=== PATIENT | female | born 1960 | race Caucasian/White ===

== ENCOUNTER 2020-07-09 05:56 | Day surgery (SDC) | payer OTHER, SELFPAY ==
--- NOTE | 2020-07-03 10:04 | EKG12_ITS ---
Test Reason : PREOP Blood Pressure : / mmHG Vent. Rate : 061 BPM Atrial Rate : 061 BPM P-R Int : 156 ms QRS Dur : 084 ms QT Int : 428 ms P-R-T Axes : 049 008 032 degrees QTc Int : 430 ms Normal sinus rhythm Normal ECG Confirmed by PRIYANK STANLEY, DAVID ([id number]), technical editor CHASE MCHUGH ([id number]) on 07/05/2020 1:30:32 PM Referred By: Marleny Goodson Confirmed By:BEV YOST MD
[2020-07-03 11:23] LABS: Hematocrit 42.5 % (37-47); Hemoglobin 13.7 g/dL (12.0-15.0); Mean Corp Hgb Conc 32.2 g/dL (32-36); Mean Corpuscular Hgb 28.7 pg (27.0-32.0); Mean Corpuscular Volume 89.1 fL (81-99); Mean Platelet Vol. 11.9 fl (6.2-12.0); Platelet Count 268 K/mm3 (150-450); RBC Distribution Width CV 12.1 % (11.6-14.6); RBC Distribution Width SD 39.7 fl (35.1-43.9); Red Blood Count 4.77 M/mm3 (4.2-5.4)
[2020-07-03 11:31] LABS: Prothrombin Time (Protime)PT. 12.4 SECONDS (11.7-14.9)
[2020-07-03 11:32] LABS: Partial Thromboplast Time 27.7 Seconds (24.1-36.2)
[2020-07-03 11:51] LABS: AST(SGOT) 25 U/L (15-37); Alanine Aminotransfer ALT/SGPT 22 U/L (13-56); Albumin, Serum 3.8 g/dL (3.2-5.0); Alkaline Phosphatase 124 U/L (45-117); Bilirubin, Direct 0.12 mg/dL (0.00-0.30); Globulin 3.7 g/dL (2.2-4.2); Protein, Total 7.5 g/dL (6.4-8.2)
[2020-07-09 06:18] VITALS: BP 149/75; PULSE 69; RESP 16; TEMP 36.3; O2SAT 98; BMI 30.3
[2020-07-09] MEDS: Lactated Ringers 1,000 ML 100 ML IV (06:30)
--- NOTE | 2020-07-09 07:38 | PCM.OPRPT ---
Problem List (1) Microhematuria Status: Acute (2) Urge incontinence Status: Acute (3) Stress incontinence Status: Acute (4) Dyspareunia Status: Acute Report of Operation Date of Procedure: 07/09/20 Pre-Operative Diagnosis: microscopic hematuria, stress incontinence, urge incontinence, dyspareunia Post-Operative Diagnosis: same Surgery/Procedure Performed:: pelvic exam under anesthesia, cystoscopy Type of Anesthesia:: General Estimated Blood Loss (mL): 1cc Description of Procedure: The patient is a 59-year-old female with microscopic hematuria on urinalysis. She is unable to undergo cystoscopy in the office and has elected to have it done under anesthesia. The risks benefits and alternatives were discussed including the COVID-19 risks. She understands and desires to proceed. Patient was taken to the operating room and placed on the operating room table. Anesthesia monitored the head, neck, airway, IV access and vital signs throughout the case. Once anesthesia was appropriately administered the patient was placed into dorsal lithotomy position was prepped and draped in usual sterile fashion. A cystourethroscopy was then performed through the urethra. The bladder mucosa in its entirety was directly visualized. There were no masses, lesions, areas of ulceration or erythema. There were no foreign bodies. Bilateral ureteral orifices were located on the area of the trigone they did appear small in size. The patient's bladder was emptied and the cystoscope was removed. A pelvic examination revealed no evidence of pelvic organ prolapse, no trigger points were identified. There was no pelvic mass palpable. The patient was then awakened and taken to the recovery room in good condition. There were no complications during this procedure. Grafts/Implants Used: none - Complications none - Admit VTE Documentation VTE Present on Admission: Yes VTE Mechan Device Prophylaxis: SCD's VTE Pharm Prophylaxis ordered?: No Reason prophylaxis not ordered:: Treatment Not Indicated
[2020-07-09 08:00] VITALS: BP 105/60; BP 149/75; PULSE 63; RESP 16; TEMP 36.7; O2SAT 94
--- NOTE | 2020-07-09 08:07 | DCINST_ITS ---
Discharge Diet: No Restrictions Discharge Activity: Return to Normal Activity May resume sexual activity in: No Restrictions Call your doctor if you observe: Fever of 101 or Higher, Inability to urinate, Inability to have a bowel movement Allergies/Adverse Reactions: Allergies No Known Allergies Allergy (Verified 07/02/20 10:05) Medications to take at Discharge Amlodipine [Norvasc] 5 mg PO DAILY 09/05/14 Calcium (Elemental) [Caltrate-600] 600 mg PO DAILY@0800 09/05/14 Cholecalciferol (VIT D3) [Vitamin D3] 2,000 unit PO DAILY 09/05/14 buPROPion XL [Wellbutrin Xl] 150 mg PO DAILY 09/05/14 Aspirin [Aspir 81] 81 mg PO DAILY 01/02/20 Fluoxetine [Prozac] 20 mg PO DAILY 01/02/20 Hydrochlorothiazide 12.5 mg PO DAILY 01/02/20 [place]-3 Fatty Acids/Fish Oil [Fish Oil 1,000 mg Capsule] 1 ea PO DAILY 01/02/20 Turmeric Root Extract [Turmeric Curcumin] 1,000 mg PO DAILY 01/02/20 Vitamin B Complex/Folic Acid [Balance B-50 Tablet] 1 ea PO DAILY 01/02/20 Primary Care Physician: Anthony Yu III, MD [Primary Care Provider] - Test Results: Test results from this visit will be discussed in further detail at your follow- up appointment, if applicable. Please Follow Up With: Marleny Goodson MD When: call office for appt in 1-2 weeks. Proposed Discharge Date: 07/09/20
[2020-07-09 08:15] VITALS: BP 108/58; BP 149/75; PULSE 60; RESP 16; O2SAT 98
[2020-07-09 08:26] VITALS: BP 104/60; BP 149/75; PULSE 61; RESP 16; TEMP 36.7; O2SAT 98
[2020-07-09 09:25] VITALS: BP 129/78; BP 149/75; PULSE 69; RESP 16; TEMP 36.9; O2SAT 96
== END 2020-07-09 09:27 | disposition home or self-care (01) ==
LOC: SDC 05:57 → AC 05:57
PROVIDERS: Anesthesiology; PCP Family Medicine; Referring Provider Urology; Visit Provider Urology
PROC: 0TBB8ZX Excision of Bladder, Via Natural or Artificial Opening Endoscopic, Diagnostic (ICD-10-PCS; CPT 52000; principal; 2020-07-09 07:20)
DX: N39.46 Mixed incontinence (principal); N94.10 Unspecified dyspareunia; R31.29 Other microscopic hematuria; F32.9 Major depressive disorder, single episode, unspecified; Z79.899 Other long term (current) drug therapy; Z79.82 Long term (current) use of aspirin; I10 Essential (primary) hypertension; K59.04 Chronic idiopathic constipation; R15.1 Fecal smearing
CPT/HCPCS: 00910; 52000; 36415; 80076; 85027; 85610; 85730; 87635; 93005; C9803; J7120; J2405; U0003

== ENCOUNTER → 2020-07-11 17:17 | Outpatient (CLI) | payer OTHER, SELFPAY ==
[2020-07-09 06:18] VITALS: BMI 30.3
== END ==
PROVIDERS: Referring Provider Family Medicine; Visit Provider Family Medicine
DX: Z11.59 Encounter for screening for other viral diseases (principal)
CPT/HCPCS: 87635; U0003

== ENCOUNTER → 2020-07-25 12:58 | Outpatient (CLI) | payer OTHER, SELFPAY ==
[2020-07-09 06:18] VITALS: BMI 30.3
== END ==
PROVIDERS: Referring Provider Family Medicine; Visit Provider Family Medicine
DX: Z11.59 Encounter for screening for other viral diseases (principal)
CPT/HCPCS: 87635; U0003

== ENCOUNTER → 2020-08-08 12:49 | Outpatient (CLI) | payer OTHER, SELFPAY ==
[2020-07-09 06:18] VITALS: BMI 30.3
== END ==
PROVIDERS: Referring Provider Family Medicine; Visit Provider Family Medicine
DX: Z03.818 Encounter for observation for suspected exposure to other biological agents ruled out (principal)
CPT/HCPCS: 87635; U0003

== ENCOUNTER → 2020-08-22 10:26 | Outpatient (CLI) | payer OTHER, SELFPAY | PROVIDERS: Referring Provider Family Medicine; Visit Provider Family Medicine | DX: Z03.818 Encounter for observation for suspected exposure to other biological agents ruled out (principal) | CPT/HCPCS: 87635; U0003 ==

== ENCOUNTER → 2020-09-05 12:06 | Outpatient (CLI) | payer OTHER, SELFPAY | PROVIDERS: Referring Provider Family Medicine; Visit Provider Family Medicine | DX: Z03.818 Encounter for observation for suspected exposure to other biological agents ruled out (principal) | CPT/HCPCS: 87635; U0003 ==

== ENCOUNTER → 2021-02-17 20:08 | Outpatient (CLI) | payer OTHER, SELFPAY | PROVIDERS: PCP Nurse Practitioner Family; Referring Provider Nurse Practitioner Family; Visit Provider Nurse Practitioner Family | DX: G47.9 Sleep disorder, unspecified (principal); R53.83 Other fatigue | CPT/HCPCS: 95810 ==

== ENCOUNTER → 2022-08-11 | Outpatient (CLI) | payer BC, SELFPAY ==
--- NOTE | 2022-08-11 08:36 | EKG12_ITS ---
Test Reason : PREOP Blood Pressure : / mmHG Vent. Rate : 061 BPM Atrial Rate : 061 BPM P-R Int : 146 ms QRS Dur : 080 ms QT Int : 426 ms P-R-T Axes : 042 013 038 degrees QTc Int : 428 ms Normal sinus rhythm Normal ECG Confirmed by ADAL STANLEY, MANNIE ([id number]), movie editor CHASE MCHUGH ([id number]) on 08/12/2022 6:46:38 AM Referred By: Patricio Voss Confirmed By:MANNIE GALEAS MD
--- NOTE | 2022-08-11 08:38 | RAD_ITS ---
STUDY: X-RAY CHEST REASON FOR EXAM: Female, 61 years old. Preop knee surgery. TECHNIQUE: PA and lateral views of the chest. COMPARISON: None. FINDINGS: The lungs are clear and expanded. There is no demonstrated pleural abnormality. Normal size heart. Normal mediastinum and wero. Normal visualized pulmonary arteries. Normal visualized aortic arch and descending thoracic aorta. Normal visualized thoracic spine. Normal visualized ribs, clavicles, and shoulders. There is no demonstrated abnormality of the visualized soft tissue structures of the upper abdomen. RAD/Chest PA and Lateral IMPRESSION: No acute cardiopulmonary disease. Electronically Signed: Karan Westfall DO at 16:41 EDT ,
[2022-08-11 10:17] LABS: Hematocrit 42.3 % (37-47); Hemoglobin 14.1 g/dL (12.0-15.0); Mean Corp Hgb Conc 33.3 g/dL (32-36); Mean Corpuscular Hgb 29.5 pg (27.0-32.0); Mean Corpuscular Volume 88.5 fL (81-99); Mean Platelet Vol. 11.6 fl (6.2-12.0); Platelet Count 259 K/mm3 (150-450); RBC Distribution Width CV 12.5 % (11.6-14.6); RBC Distribution Width SD 40.6 fl (35.1-43.9); Red Blood Count 4.78 M/mm3 (4.2-5.4); White Blood Count 6.7 K/mm3 (4.4-11.0)
[2022-08-11 10:47] LABS: Anion Gap 6 (5-15); BUN 19 mg/dL (7-18); BUN/Creat Ratio 20.7 RATIO (10-20); Calcium,Total 9.4 mg/dL (8.5-10.1); Chloride 104 mmol/L (98-107); Creatinine, Serum 0.92 mg/dL (0.55-1.02); EST Glomerular Filtration Rate 66 mL/min (>60); Est Glom Filt Rate - Afr Amer 80 mL/min (>60); Glucose 93 mg/dL (74-106); Sodium Level 139 mmol/L (136-145)
== END | disposition home or self-care (01) ==
LOC: PSN 08:35
PROVIDERS: PCP Nurse Practitioner Family; Referring Provider Student in an Organized Health Care Education/Training Program; Visit Provider Student in an Organized Health Care Education/Training Program
DX: Z01.818 Encounter for other preprocedural examination (principal)
CPT/HCPCS: 36415; 71046; 80048; 85027; 93005

== ENCOUNTER → 2022-10-08 | Outpatient (CLI) | payer BC, SELFPAY ==
--- NOTE | 2022-10-08 10:14 | BI_ITS ---
MAMMOGRAPHY - BILATERAL SCREENING REASON FOR EXAM: Female, 61 years old. Routine annual screening examination. PERTINENT HISTORY: Aunt with breast cancer. TECHNIQUE: Digital bilateral breast onofre (3D mammographic acquisition) in the CC and MLO projections. 2-D mediolateral oblique (MLO) and craniocaudad (CC) views of both breasts were obtained. CAD: Full Field Digital Mammography with Computer Added Detection was performed. COMPARISON: Comparison is made with prior examination dated 03/09/2017. FINDINGS: Breast Composition: The breasts are almost entirely fatty. There are no dominant masses or suspicious calcifications. Stable small benign-appearing bilateral axillary lymph nodes. No other significant abnormalities are identified. There has been no significant change since the prior study. BI/SCRN MAMM (CAD)W/ONOFRE BILAT IMPRESSION: Stable bilateral screening mammogram. Yearly follow-up mammogram recommended. (A) ASSESSMENT CATEGORY: BIRADS Category 2: Benign. A letter regarding these results will be sent to the patient by the facility within 30 days. Approximately 10% of breast cancers are not detected by mammography. A normal mammogram should not delay biopsy of a clinically suspicious abnormality. [id number] Electronically Signed: Donovan Hicks MD at 14:53 EST ,
[2022-10-20 16:12] LABS: HPV APTIMA, High Risk Negative (Negative)
== END | disposition home or self-care (01) ==
PROVIDERS: PCP Nurse Practitioner Family; Visit Provider Obstetrics & Gynecology
DX: Z12.31 Encounter for screening mammogram for malignant neoplasm of breast (principal)
CPT/HCPCS: 77063; 77067; 87624; 88175; G0145

== ENCOUNTER → 2023-11-02 | Outpatient (CLI) | payer SELFPAY ==
--- NOTE | 2023-11-02 12:06 | BI_ITS ---
MAMMOGRAPHY - BILATERAL SCREENING REASON FOR EXAM: Female, 62 years old. Routine annual screening examination. PERTINENT HISTORY: Aunt with breast cancer. TECHNIQUE: Digital bilateral breast onofre (3D mammographic acquisition) in the CC and MLO projections. 2-D mediolateral oblique (MLO) and craniocaudad (CC) views of both breasts were obtained. CAD: Full Field Digital Mammography with Computer Added Detection was performed. COMPARISON: Comparison is made with prior examination of October 08, 2022. FINDINGS: Breast Composition: The breasts are almost entirely fatty. There are no dominant masses or suspicious calcifications. Stable small benign-appearing bilateral axillary lymph nodes. No other significant abnormalities are identified. There has been no significant change since the prior study. BI/SCRN MAMM (CAD)W/ONOFRE BILAT IMPRESSION: Stable bilateral screening mammogram. Yearly follow-up mammogram recommended. (A) ASSESSMENT CATEGORY: BIRADS Category 2: Benign. A letter regarding these results will be sent to the patient by the facility within 30 days. Approximately 10% of breast cancers are not detected by mammography. A normal mammogram should not delay biopsy of a clinically suspicious abnormality. [id number] Electronically Signed: Donovan Hicks MD at 13:33 EST ,
--- OUTSIDE RECORDS SUMMARY | 2023-11-02 12:17 | XMS RPT_ITS | CCD ---
Author Name Unknown Address [address] [facility] [id number] [place] [address] Organization [facility] Care Team Providers Care Wage Hand Name Role Phone Ab Kim Attending Unavailable PROVIDER, UNKNOWN Referring Unavailable UNKNOWN, PROVIDER Primary Care Unavailable Latha Rutherford Attending Unavailable PROVIDER, UNKNOWN Referring Unavailable UNKNOWN, PROVIDER Primary Care Unavailable Latha Rutherford Attending Unavailable PROVIDER, UNKNOWN Referring Unavailable UNKNOWN, PROVIDER Primary Care Unavailable Haagen ROUGH CARPENTER.CARLTON, Shaina Primary Care Provider Hazoie ROUGH CARPENTER.CARLTON, Shaina Primary Care Provider Haagen ROUGH CARPENTER.CARLTON, Shaina Primary Care Provider SHAINA TORRES Referring Unavailable SHAINA TORRES Primary Care Unavailable SHAINA TORRES Attending Unavailable SHAINA TORRES Primary Care Unavailable Allergies Allergy Classification Reported Allergen(s) Allergy Type Date of Onset Reaction(s) Facility (8 sources) Dust; Translations: [DUST] Propensity to adverse reactions 6 [facility] (7 sources) POLLENS [Other] Propensity to adverse reactions 6 [facility] (1 source) OTHER; Translations: [OTHER] Propensity to adverse reactions (disorder) 6 [facility] Repository Medications Completed/Discontinued Medications Medication Drug Class(es) Dates Sig (Normalized) Sig (Original) amLODIPine 5 mg oral tablet (8 sources) Dihydropyridine Calcium Channel Oneil Start: 08-11-2023 take 1 tablet by mouth once daily amLODIPine (NORVASC) 5 mg tablet Indications: Essential hypertension, benign Take 1 tablet by mouth once daily. 90 tablet 3 08/11/2023 Active Problems Active Problems Problem Classification Problem Date Documented Date Episodic/Chronic Adjustment disorders (12 sources) Adjustment disorder with depressed mood; Translations: [Adjustment disorder with depressed mood] Onset: 03-02-2006 03-02-2006 Chronic Disorders of lipid metabolism (2 sources) Hyperlipidemia; Translations: [Hyperlipidemia, unspecified] Onset: 09-29-2023 08-03-2023 Chronic Essential hypertension (10 sources) Benign essential hypertension; Translations: [Essential (primary) hypertension] 11-16-2005 Chronic Malaise and fatigue (2 sources) Fatigue; Translations: [Other fatigue] Onset: 09-29-2023 08-03-2023 Episodic Osteoarthritis (14 sources) Arthritis of hip; Translations: [Unilateral primary osteoarthritis, unspecified hip] Onset: 08-24-2017 08-24-2017 Chronic Other circulatory disease (8 sources) 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; Translations: [Arterial fibromuscular dysplasia] Onset: 10-31-2019 09-10-2020 Chronic Other hereditary and degenerative nervous system conditions (8 sources) Mild cognitive impairment, so stated; Translations: [Mild cognitive impairment, so stated] Onset: 02-06-2015 02-06-2015 Chronic Other hereditary and degenerative nervous system conditions (1 source) Impaired cognition; Translations: [Mild cognitive impairment, so stated] 08-03-2023 Chronic Other non-traumatic joint disorders (2 sources) Effusion, left hand; Translations: [Effusion, left hand] Onset: 11-01-2018 Episodic Other nutritional; endocrine; and metabolic disorders (7 sources) Metabolic syndrome X; Translations: [Metabolic syndrome] Onset: 06-08-2007 06-08-2007 Chronic Other nutritional; endocrine; and metabolic disorders (1 source) Weight loss; Translations: [Abnormal weight loss] 08-03-2023 Episodic Other screening for suspected conditions (not mental disorders or infectious disease) (2 sources) Patient encounter status; Translations: [Encounter for screening mammogram for malignant neoplasm of breast] Episodic Residual codes; unclassified (7 sources) Daytime somnolence; Translations: [Other hypersomnia] Onset: 09-10-2020 09-10-2020 Chronic Spondylosis; intervertebral disc disorders; other back problems (7 sources) Cervical spondylosis; Translations: [Spondylosis without myelopathy or radiculopathy, cervical region] Onset: 03-21-2013 03-21-2013 Chronic Sprains and strains (4 sources) Unspecified sprain of left wrist, initial encounter; Translations: [Strain of unspecified muscle, fascia and tendon at wrist and hand level, left hand, initial encounter] Onset: 10-07-2018 Episodic Superficial injury; contusion (2 sources) Contusion of left hand, initial encounter; Translations: [Contusion of left hand, initial encounter] Onset: 11-01-2018 Episodic Past or Other Problems Problem Classification Problem Date Documented Date Episodic/Chronic Genitourinary symptoms and ill-defined conditions (7 sources) Microscopic hematuria; Translations: [Other microscopic hematuria] Onset: 10-31-2019 10-31-2019 Episodic Other and unspecified benign neoplasm (8 sources) Angiomyolipoma of left kidney; Translations: [Benign lipomatous neoplasm of kidney] Onset: 12-07-2019 12-07-2019 Episodic Other connective tissue disease (7 sources) Impingement syndrome of right shoulder region; Translations: [Impingement syndrome of right shoulder] Onset: 10-31-2019 10-31-2019 Episodic Other connective tissue disease (7 sources) Fibromyalgia; Translations: [Fibromyalgia] Onset: 01-07-2021 01-07-2021 Episodic Residual codes; unclassified (7 sources) Menopause present; Translations: [Asymptomatic menopausal state] Onset: 10-31-2019 10-31-2019 Episodic Residual codes; unclassified (7 sources) Reduced libido; Translations: [Decreased libido] Onset: 10-31-2019 10-31-2019 Episodic Results Test Name Value Interpretation Reference Range Facil it Vital Signs Date Time Vital Sign Value Performing Clinician Martín thakur 08-03-2023 13:57-0400 Body height 170 cm Shaina Torres APRN.CNP Work Phone: [facility] 08-03-2023 13:57-0400 Body weight 83.46 kg Shaina Torres APRN.CNP Work Phone: [facility] 08-03-2023 13:57-0400 Diastolic blood pressure 82 mm[Hg] Shaina Torres APRN.CNP Work Phone: [facility] 08-03-2023 13:57-0400 Heart rate 57 /min Shaina Torres APRN.CNP Work Phone: [facility] 08-03-2023 13:57-0400 Respiratory rate 16 /min Shaina Torres APRN.SIL[employer] MINER [employer]ING Work Phone: [facility] 08-03-2023 13:57-0400 SaO2% (BldA) [Mass fraction] 92 % Shaina Torres ROUGH CARPENTER.SIL[employer]ER BLASTING Work Phone: [facility] 08-03-2023 13:57-0400 Systolic blood pressure 124 mm[Hg] Shaina Torres ROUGH CARPENTER.S[employer]ER [employer]ING Work Phone: [facility] 07-28-2022 09:31-0400 Diastolic blood pressure 80 mm[Hg] Shaina Torres ROUGH CARPENTER.[employer]ING Work Phone: [facility] 07-28-2022 09:31-0400 Heart rate 59 /min Shaina Torres ROUGH CARPENTER.[employer]ER [employer]ING Work Phone: [facility] 07-28-2022 09:31-0400 Respiratory rate 18 /min Shaina Torres ROUGH CARPENTER.[employer]ING Work Phone: [facility] 07-28-2022 09:31-0400 SaO2% (BldA) [Mass fraction] 95 % Shaina Torres ROUGH CARPENTER.SIL[employer]ER [employer]ING Work Phone: [facility] 07-28-2022 09:31-0400 Systolic blood pressure 128 mm[Hg] Shaina Torres ROUGH CARPENTER.SIL[employer]ER [employer]ING Work Phone: [facility] Encounters Encounter Date Encounter Type Care Provider Facility Start: 09-29-2023 End: 09-30-2023 ambulatory SHAINA TORRES Facility:[facility] Start: 09-06-2023 Telephone encounter Man Marie MD Work Phone: Sleep Procedures Date Procedure Procedure Detail Performing Clinician Start: 06-23-2022 Lipid 1996 panel - S sarah or Plasma Shaina Torres APRN.SIL[employer] MINER BLASTING Work Phone: Start: 01-07-2021 Adult depression scr eening assessment Shaina Torres APRN.SIL[employer] MINER [employer]ING Work Phone: Start: 10-03-2019 Mammography Shaina lino APRN.SIL[employer]ER [employer]ING Work Phone: Start: 04-11-2014 Colonoscopy Shaina lino ROUGH CARPENTER.SIL[employer]ER [employer]ING Work Phone: Plan of Treatment Date Care Activity Detail Author Start: 10-16-2028 Urine microalbumin profile [facility] Start: 10-08-2027 HPV Testing HPV Testing [facility] Start: 10-08-2027 Pap Testing Pap Testing [facility] Start: 06-23-2027 Lipid 1996 panel - Serum or Plasma Lipid Screening [facility] Start: 06-23-2027 LIPID SCREEN LIPID SCREEN [facility] Start: 01-01-2026 LIPID SCREEN LIPID SCREEN [facility] Start: 06-23-2025 DIABETES SCREEN DIABETES SCREEN [facility] Start: 06-23-2025 Diabetes Screening Diabetes Screening [facility] Start: 08-03-2024 Annual PCP Team Chronic Disease Visit Annual PCP Team Chronic Disease Visit [facility] Start: 05-20-2024 DIABETES SCREEN DIABETES SCREEN [facility] Start: 04-11-2024 Colonoscopy COLONOSCOPY [facility] Start: 04-11-2024 COLORECTAL CANCER SCREENING COLORECTAL CANCER SCREENING [facility] Start: 10-08-2023 Mammography Mammogram Screening [facility] Start: 08-03-2023 End: 10-03-2023 CBC W Auto Differential panel - Blood CBC + DIFF Lab Routine Fatigue, unspecified type Expected: 08/03/2023, Expires: 10/03/2023 [facility] Work Phone: Immunizations Immunization Date Immunization Notes Care Provider Manoj gr 10-16-2018 tetanus toxoid, redu tracie diphtheria toxoid, and acellular pertussis vaccine, adsorbed Shaina Torres ROUGH CARPENTER.CARLTON Work Phone: [facility] 08-24-2017 influenza virus vacc ine, unspecified formulation Shaina Torres ROUGH CARPENTER.SIL[employer]ER [employer]ING Work Phone: [facility] 10-12-2002 hepatitis A vaccine, unspecified formulation Shaina Torres ROUGH CARPENTER.SIL[employer]ER [employer]ING Work Phone: [facility] 10-12-2002 TD(adult) unspecifie d formulation Shaina Torres ROUGH CARPENTER.SIL[employer]ER [employer]ING Work Phone: [facility] Payers Date Payer Category Payer Unknown [id number] 2021 Unknown 2021 Unknown [employer] PPO [id number] 2021-Present [phone] [address] [place] [address] PPO [id number] 2017 Private Health Insurance [employer] PPO [id number] 2017-Present [phone] [address] [place] [address] PPO [id number] 1959 Unknown [id number] 1959 Unknown [id number] 1959 Unknown [id number] Worker's Compensation Social History Date Type Detail Facility Start: 09-20-2012 Tobacco smoking stat us PRIS Never smoked tobacco [facility] Start: 11-06-2021 End: 08-03-2023 Alcohol intake Current drinker of alcohol (finding) [facility] Start: 04-04-2014 History SDOH Alcohol Comment 1/month [facility] Start: 1960 Sex Assigned At Not on file [facility] Start: 09-20-2012 Tobacco use and exposure Smoke less tobacco non-user [facility] Work Phone: Start: 07-28-2022 History SDOH Alcohol Frequency 2 [facility] Start: 07-28-2022 History SDOH Alcohol Std Drinks 1 [facility] Start: 07-28-2022 History SDOH Social Connections Phone 4 [facility] Start: 07-28-2022 History SDOH Social Connections Get Together 98 [facility] Start: 07-28-2022 History SDOH Social Connections [facility] 3 [facility] Start: 07-27-2022 End: 08-03-2023 [facility] Start: 07-27-2022 End: 08-03-2023 Social connection and isolation panel [facility] How often do you get together with friends or relatives? Patient refused [facility] Do you belong to any clubs or organizations such as voodoo groups, unions, fraternal or athletic groups, or school groups? No [facility] Are you now , , , , never or living with a partner? [facility] How often to you hav e a drink containing alcohol? Monthly or less [facility] How many standard dr inks containing alcohol do you have on a typical day? 1 or 2 [facility] How often do you hav e 6 or more drinks on 1 occasion? Never [facility] How hard is it for y ou to pay for the very basics like food, housing, medical care, and heating Not very hard [facility] Do you feel stress - tense, restless, nervous, or anxious, or unable to sleep at night because your mind is troubled all the time - these days [OSQ] To some extent [facility] (I/We) worried whemariana er (my/our) food would run out before (I/we) got money to buy more. Never true [facility] Clinical Notes 06-08-2007 to 09-06-2023 Telephone Encounter - Gisela Foss LPN - 09/06/2023 3:01 PM ESTTelephone Encounter - Saadia Pat LPN - 09/06/2023 2:43 PM ESTPatient InstructionsPatient Instructions Note Date & Type Note Facility 09-06-2023 Miscellaneous Notes Pt has upcoming appointment with Dr. Marie 10/22/23. Gisela Foss LPN FYI: Melissa, daughter calling to make you aware of some things that are going on and she will be with pt when she comes in for her apt on 10-22-23. Some memory issues. Does not want to embarrass pt. Noticing she repeats herself often, pt will pass things off like she does not want to understand or does not care. A little personality change. Spouse has cancer and pt is stressed. Pt having problems with remembering last names does okay with first names. Pt is on antidepressants medications and not sure could they be adding to things going on. Saadia Pat LPN documented in this encounter [facility] 08-11-2023 Miscellaneous Notes Script sent. Shaina Torres APRN.SILVER MINER BLASTING Patient is calling back to say she has been out for a week and they were requested at her last appointment. She is asking for them to be called in today. Patient has been identified by name and date of : Yes Last office visit in this department: 07/28/2022 RX INSTRUCTIONS: Patient aware RX will be sent to pharmacy. No need to notify patient. Patient phones requesting refills as follows: Requested Prescriptions Pending Prescriptions Disp Refills amLODIPine (NORVASC) 5 mg tablet 90 tablet 3 Sig: Take 1 tablet by mouth once daily. buPROPion XL (WELLBUTRIN XL) 300 mg 24 hr tablet 90 tablet 2 Sig: Take 1 tablet by mouth once daily. Please review and advise. Hoa Evangelista documented in this encounter [facility] 08-03-2023 Note HNO ID: [id number] Author: Shaina Torres APRN.CARLTON Service: ? Author Type: Nurse Practitioner Type: Progress Notes Filed: 08/03/2023 6:44 PM Note Text: This is a 62 year old female who presents today with: Patient presents with: Yearly Exam HISTORY OF PRESENT ILLNESS: Gissell Ocasio is a 62 year old female. Patient presents with: Yearly Exam Refers that she is getting more forgetful and problems with short-term memory. Refers that has been going on for some time, but seems to be getting worse. Had discussed w/ Dr. Yu in the past. Declined seeing brain health. Admits that she will forget last names and sometimes trouble finding words. Has been for years. 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 Admits to past hx of ADD. HTN: Patient is compliant with meds Yes, but recently ran out of her amlodipine and took her 's lisinopril. Denies side effects: feels dry with the HCTZ. Chest pain: No. Dyspnea: No. Edema: No. Palpitations: No. Syncope: No. Headache: No. Dizziness: No. Weight loss. Down 24# in the last year. Has been losing weight. Hasn't really been trying. Decreased appetite. Will snack. No hematochezia/melena. No n/v. REVIEW OF SYSTEMS GENERAL: No malaise or fevers/chills HEENT: Negative for frequent or significant headaches, No changes in hearing or vision. NECK: Negative for lumps, goiter, pain and significant neck swelling RESPIRATORY: Negative for cough, hemoptysis, wheezing, dyspnea or shortness of breath CARDIOVASCULAR: Negative for chest pain, leg swelling, orthopnea, or palpitations GI: No nausea, vomiting, or diarrhea/constipation. No hematochezia/melena. No heartburn or reflux symptoms. : No history of dysuria, frequency or incontinence MUSCULOSKELETAL: Negative for joint pain or swelling. SKIN: Negative for lesions, rash, and itching ENDOCRINE: Negative for cold or heat intolerance, polyuria, polydipsia and goiter NEURO: No history of headaches, syncope, paralysis, seizures or tremors PAST MEDICAL HISTORY: PAST MEDICAL HISTORY Diagnosis Date Adjustment disorder with depressed mood 03/02/2006 Arthritis of hip 08/24/2017 right Decreased libido 10/31/2019 Essential hypertension, benign Fibromuscular dysplasia of carotid artery (HCC) 10/31/2019 Menopause 10/31/2019 Microscopic hematuria 10/31/2019 PMH - PAST MEDICAL HISTORY OF precancerous lesions on face Shoulder impingement syndrome, right 10/31/2019 Varicose veins of other sites PAST SURGICAL HISTORY Procedure Laterality Date COLONOSCOPY FLX DX W/COLLJ SPEC WHEN PFRMD 04/11/14 Colonoscopy CYSTOSCOPY 07/09/2020 Dr. Goodson PAST SURGICAL HISTORY OF premelanoma excised from abdomen PAST SURGICAL HISTORY OF Several Pre-cancerous lesions removed PAST SURGICAL HISTORY OF 1999 [facility] TONSILLECTOMY PRIMARY/SECONDARY AGE 11/> age of 18 ALLERGIES Dust and Pollens [Other] MEDICATIONS Current Outpatient Medications Medication Sig amLODIPine (NORVASC) 5 mg tablet Take 1 tablet by mouth once daily. aspirin, enteric coated (ASPIRIN, ENTERIC COATED) 81 mg EC tablet Take 1 tablet by mouth once daily. buPROPion XL (WELLBUTRIN XL) 300 mg 24 hr tablet Take 1 tablet by mouth once daily. FLUoxetine (PROZAC) 40 mg capsule Take 1 capsule by mouth once daily. hydroCHLOROthiazide (HYDRODIURIL, ESIDRIX) 12.5 mg capsule Take 1 capsule by mouth once daily. OMEGA-3 FATTY ACIDS/FISH OIL (OMEGA 3 FISH OIL ORAL) Take by mouth. turmeric (CURCUMIN MISC) vitamin B complex (B COMPLEX ORAL) Take by mouth as directed. No current facility-administered medications for this visit. FAMILY HISTORY Problem Relation Age of Onset Hypertension Mother had a lg benign mass in uterus, hyst. Heart Father coronary artery disease, chf Hypertension Father Hypertension Brother Hypertension Brother Thyroid Sister hypothyroidism Diabetes Sister Type 1 Social History Tobacco Use Smoking status: Never Smokeless tobacco: Never Substance Use Topics Alcohol use: Yes Comment: 1/month Drug use: No EXAM: BP 124/82 Pulse (!) 57 Resp 16 Ht 170 cm (5' 6.93 ) Wt 83.5 kg (184 lb) SpO2 92% BMI 28.88 kg/m? PHYSICAL EXAM: General Appearance: Well appearing, alert, in no acute distress, well-hydrated, well nourished. Skin: Skin color, texture, turgor normal, no suspicious rashes or lesions. Head: Normocephalic, no masses, lesions, tenderness or abnormalities. Eyes: Anicteric sclera. Extraocular movements are intact. . Oropharynx: Lips, mucosa, and tongue normal, teeth and gums normal, oropharynx normal. Neck: Supple, no adenopathy; thyroid symmetric, normal size, no bruits. Lungs: Lungs clear to auscultation. No wheezing, rhonchi, rales.. Heart: RRR without murmur, gallop, or rubs. No ectopy. Abdomen: Abdomen soft, non-tender. Bowel sounds normal. No masses, organomegaly. Extremities: No deformities, (more content not included)... [facility] 08-03-2023 Instructions Shaina Torres APRN.CARLTON - 08/03/2023 2:43 PM EDT Return for fasting labs. Schedule mammogram after the new year. Stop the HCTZ and start the lisinopril. Schedule w/ neurology. Recheck blood pressure in a month at work and send it to me. documented in this encounter [facility] 08-03-2023 History of Present illness Narrative This is a 62 year old female who presents today with: Patient presents with: Yearly Exam HISTORY OF PRESENT ILLNESS: Gissell Ocasio is a 62 year old female. Patient presents with: Yearly Exam Refers that she is getting more forgetful and problems with short-term memory. Refers that has been going on for some time, but seems to be getting worse. Had discussed w/ Dr. Yu in the past. Declined seeing [facility]. Admits that she will forget last names and sometimes trouble finding words. Has been for years. 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 Admits to past hx of ADD. HTN: Patient is compliant with meds Yes, but recently ran out of her amlodipine and took her 's lisinopril. Denies side effects: feels dry with the HCTZ. Chest pain: No. Dyspnea: No. Edema: No. Palpitations: No. Syncope: No. Headache: No. Dizziness: No. Weight loss. Down 24# in the last year. Has been losing weight. Hasn't really been trying. Decreased appetite. Will snack. No hematochezia/melena. No n/v. REVIEW OF SYSTEMS GENERAL: No malaise or fevers/chills HEENT: Negative for frequent or significant headaches, No changes in hearing or vision. NECK: Negative for lumps, goiter, pain and significant neck swelling RESPIRATORY: Negative for cough, hemoptysis, wheezing, dyspnea or shortness of breath CARDIOVASCULAR: Negative for chest pain, leg swelling, orthopnea, or palpitations GI: No nausea, vomiting, or diarrhea/constipation. No hematochezia/melena. No heartburn or reflux symptoms. : No history of dysuria, frequency or incontinence MUSCULOSKELETAL: Negative for joint pain or swelling. SKIN: Negative for lesions, rash, and itching ENDOCRINE: Negative for cold or heat intolerance, polyuria, polydipsia and goiter NEURO: No history of headaches, syncope, paralysis, seizures or tremors PAST MEDICAL HISTORY: PAST MEDICAL HISTORY Diagnosis Date Adjustment disorder with depressed mood 03/02/2006 Arthritis of hip 08/24/2017 right Decreased libido 10/31/2019 Essential hypertension, benign Fibromuscular dysplasia of carotid artery (HCC) 10/31/2019 Menopause 10/31/2019 Microscopic hematuria 10/31/2019 PMH - PAST MEDICAL HISTORY OF precancerous lesions on face Shoulder impingement syndrome, right 10/31/2019 Varicose veins of other sites PAST SURGICAL HISTORY Procedure Laterality Date COLONOSCOPY FLX DX W/COLLJ SPEC WHEN PFRMD 04/11/14 Colonoscopy CYSTOSCOPY 07/09/2020 Dr. Goodson PAST SURGICAL HISTORY OF premelanoma excised from abdomen PAST SURGICAL HISTORY OF Several Pre-cancerous lesions removed PAST SURGICAL HISTORY OF 2000 [facility] TONSILLECTOMY PRIMARY/SECONDARY AGE 11/> age of 18 ALLERGIES Dust and Pollens [Other] MEDICATIONS Current Outpatient Medications Medication Sig amLODIPine (NORVASC) 5 mg tablet Take 1 tablet by mouth once daily. aspirin, enteric coated (ASPIRIN, ENTERIC COATED) 81 mg EC tablet Take 1 tablet by mouth once daily. buPROPion XL (WELLBUTRIN XL) 300 mg 24 hr tablet Take 1 tablet by mouth once daily. FLUoxetine (PROZAC) 40 mg capsule Take 1 capsule by mouth once daily. hydroCHLOROthiazide (HYDRODIURIL, ESIDRIX) 12.5 mg capsule Take 1 capsule by mouth once daily. OMEGA-3 FATTY ACIDS/FISH OIL (OMEGA 3 FISH OIL ORAL) Take by mouth. turmeric [place] [place] vitamin B complex (B COMPLEX ORAL) Take by mouth as directed. No current facility-administered medications for this visit. FAMILY HISTORY Problem Relation Age of Onset Hypertension Mother had a lg benign mass in uterus, hyst. Heart Father coronary artery disease, chf Hypertension Father Hypertension Brother Hypertension Brother Thyroid Sister hypothyroidism Diabetes Sister Type 1 Social History Tobacco Use Smoking status: Never Smokeless tobacco: Never Substance Use Topics Alcohol use: Yes Comment: 1/month Drug use: No EXAM: BP 124/82 Pulse (!) 57 Resp 16 Ht 170 cm (5' 6.93 ) Wt 83.5 kg (184 lb) SpO2 92% BMI 28.88 kg/m PHYSICAL EXAM: General Appearance: Well appearing, alert, in no acute distress, well-hydrated, well nourished. Skin: Skin color, texture, turgor normal, no suspicious rashes or lesions. Head: Normocephalic, no masses, lesions, tenderness or abnormalities. Eyes: Anicteric sclera. Extraocular movements are intact. . Oropharynx: Lips, mucosa, and tongue normal, teeth and gums normal, oropharynx normal. Neck: Supple, no adenopathy; thyroid symmetric, normal size, no bruits. Lungs: Lungs clear to auscultation. No wheezing, rhonchi, rales.. Heart: RRR without murmur, gallop, or rubs. No ectopy. Abdomen: Abdomen soft, non-tender. Bowel sounds normal. No masses, organomegaly. Extremities: No deformities, edema, skin discoloration, clubbing or cyanosis. Good capillary refill. Neurologic: Gait normal. ASSESSMENT/PLAN: 1. Mild cognitive impairment - ICD9: 331.83, ICD10: G31.84 (primary diagnosis) Declines referral to brain [facility] at this time. She is trying to limit expense until medicare eligible. Is agreeable to neurology referral. Is agreeable to labs. - CONSULT TO NEUROLOGY - TSH BLD - T4 FREE/FREE THYROX - VITAMIN B12 BLOOD 2. Fatigue, unspecified type - ICD9: 780.79, ICD10: R53.83 - TSH BLD - T4 FREE/FREE THYROX - CBC + DIFF - COMP METABOLIC PANEL 3. Hyperlipidemia with target LDL less than 130 - ICD9: 272.4, ICD10: E78.5 - LIPID PANEL BASIC 4. Weight loss - ICD9: 783.21, ICD10: R63.4 Get labs. Get ifob. May be secondary to increased wellbutrin dose, but r/o other causes. - FECAL OCCULT BLOOD TEST 5. Visit for screening mammogram - ICD9: V76.12, ICD10: Z12.31 - Set up for mammogram, yearly mammogram recommended - [facility] SCREENING 6. Essential hypertension, benign - ICD9: 401.1, ICD10: I10 - Controlled Patient would really like to eliminate hydrochlorothiazide. We will go ahead and stop hydrochlorothiazide and start lisinopril 10 mg daily. Continue the amlodipine 5 mg daily. 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 7. Adjustment disorder with depressed mood - ICD9: 309.0, ICD10: F43.21 Stable on current medication regimen. 8. Fibromuscular dysplasia of both carotid arteries (HCC) - ICD9: 447.8, ICD10: I77.3 Declines re imaging this year -- would like to wait until medicare eligible. 9. Angiomyolipoma of left kidney - ICD9: 223.0, ICD10: D17.71 Declines reimaging this year. Would like to wait until she is medicare eligible. Discussed treatment plan and patient voices understanding. Patient's questions answered appropriately. Medications and potential side effects were discussed and patient voices understanding. Return to the office as scheduled or as needed for worsening/no improvement. Shaina Torres APRN.CNP The patient indicates understanding of these issues and agrees with the plan. This note was partially generated using [employer] voice recognition system. Note was reviewed for accuracy. There may be minor misspellings or grammar miscues with [employer] voice recognition. documented in this encounter [facility] 07-28-2022 Instructions Shaina Torres APRN.CNP - 07/28/2022 9:49 AM EDT Continue the same medications. Recheck in 3 months. documented in this encounter [facility] 07-28-2022 History of Present illness Narrative This is a 61 year old female who presents today with: Patient presents with: Recheck: Medication follow up HISTORY OF PRESENT ILLNESS: Gissell Ocasio is a 61 year old female. Patient presents with: Recheck: Medication follow up Pt presents today to follow-up on wellbutrin. She was having worsening depressive/anxiety symptoms d/t multiple situational/familial stressors. We increased the wellbutrin. She does feel that this improved her symptoms. Much less weepy. Denies any side effects to the medication adjustment. PAST MEDICAL HISTORY: PAST MEDICAL HISTORY Diagnosis Date Adjustment disorder with depressed mood 03/02/2006 Arthritis of hip 08/24/2017 right Decreased libido 10/31/2019 Essential hypertension, benign Fibromuscular dysplasia of carotid artery (HCC) 10/31/2019 Menopause 10/31/2019 Microscopic hematuria 10/31/2019 PMH - PAST MEDICAL HISTORY OF precancerous lesions on face Shoulder impingement syndrome, right 10/31/2019 Varicose veins of other sites PAST SURGICAL HISTORY Procedure Laterality Date COLONOSCOPY FLX DX W/COLLJ SPEC WHEN PFRMD 04/11/14 Colonoscopy CYSTOSCOPY 07/09/2020 Dr. Goodson PAST SURGICAL HISTORY OF premelanoma excised from abdomen PAST SURGICAL HISTORY OF Several Pre-cancerous lesions removed PAST SURGICAL HISTORY OF 1999 D&C TONSILLECTOMY PRIMARY/SECONDARY AGE 11/> age of 18 ALLERGIES Dust and Pollens [Other] MEDICATIONS Current Outpatient Medications Medication Sig amLODIPine (NORVASC) 5 mg tablet Take 1 tablet by mouth once daily. buPROPion XL (WELLBUTRIN XL) 300 mg 24 hr tablet Take 1 tablet by mouth once daily. hydroCHLOROthiazide (HYDRODIURIL, ESIDRIX) 12.5 mg capsule take 1 capsule by mouth once daily FLUoxetine (PROZAC) 40 mg capsule take 1 capsule by mouth once daily aspirin, enteric coated (ASPIRIN, ENTERIC COATED) 81 mg EC tablet Take 1 tablet by mouth once daily. vitamin B complex (B COMPLEX ORAL) Take by mouth as directed. turmeric (CURCUMIN MISC) OMEGA-3 FATTY ACIDS/FISH OIL (OMEGA 3 FISH OIL ORAL) Take by mouth. Cholecalciferol, Vitamin D3, (VITAMIN D-3) 2,000 unit cap Take 1 capsule by mouth once daily. Calcium-Cholecalciferol, D3, (CALCIUM 600 + D) 600-125 mg-unit tab Take 1 tablet by mouth once daily. buPROPion XL (WELLBUTRIN XL) 150 mg 24 hr tablet Take 1 tablet by mouth once daily. No current facility-administered medications for this visit. FAMILY HISTORY Problem Relation Age of Onset Hypertension Mother had a lg benign mass in uterus, hyst. Heart Father coronary artery disease, chf Hypertension Father Hypertension Brother Hypertension Brother Thyroid Sister hypothyroidism Diabetes Sister Type 1 Social History Tobacco Use Smoking status: Never Smokeless tobacco: Never Substance Use Topics Alcohol use: Yes Comment: 1/month Drug use: No EXAM: BP 128/80 Pulse (!) 59 Resp 18 SpO2 95% PHYSICAL EXAM: General Appearance: Well appearing, alert, in no acute distress, well-hydrated, well nourished.. Skin: Skin color, texture, turgor normal, no suspicious rashes or lesions. Head: Normocephalic, no masses, lesions, tenderness or abnormalities. Eyes: Anicteric sclera. Extraocular movements are intact. . Neurologic: Gait normal. ASSESSMENT/PLAN: 1. Adjustment disorder with depressed mood - ICD9: 309.0, ICD10: F43.21 (primary diagnosis) Improved w/ increase wellbutrin dose. Continue the same dose. Recheck in 3 months. - FLUOXETINE 40 MG CAPSULE - BUPROPION XL 300 MG 24 HR TAB 2. Essential hypertension, benign - ICD9: 401.1, ICD10: I10 Refill: - HYDROCHLOROTHIAZIDE 12.5 MG CAPSULE Discussed treatment plan and patient voices understanding. Patient's questions answered appropriately. Medications and potential side effects were discussed and patient voices understanding. Return to the office as scheduled or as needed for worsening/no improvement. Shaina Torres APRN.[employer] documented in this encounter [facility] 05-27-2022 Miscellaneous Notes Patient phones requesting refills as follows: Pending Prescriptions Disp Refills FLUOXETINE 40 MG CAPSULE 90 capsule 0 Sig: take 1 capsule by mouth once daily BRITTANY: Yes DEVANTE-05/07/21 Labs-05/20/21 NOV-none med filled 05/12/22 Please review and advise. Rosalind Crowe LPN documented in this encounter [facility] 05-12-2022 Miscellaneous Notes The following approved medication requests have been transmitted electronically. Signed Prescriptions Disp Refills FLUoxetine (PROZAC) 40 mg capsule 90 capsule 0 Sig: take 1 capsule by mouth once daily BRITTANY: No Authorizing Provider: ADRIENNE HARTMANN Ordering User: SHAINA TORRES Patient active [facility]. Patient notified via [facility] message. Bailey Boothe MA Script sent. Due for an appointment - hasn't been seen in over a year. Please let patient know. Shaina Torres APRN.[employer] Patient has been identified by name and date of : Yes Patient phones for refill(s): Pending Prescriptions Disp Refills FLUOXETINE 40 MG CAPSULE 90 capsule 1 Sig: take 1 capsule by mouth once daily BRITTANY: Yes Date of last office visit in primary care: 05/07/21 No future OV scheduled Please advise. Thank you. 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/08/2007 documented as of this encounter (statuses as of 05/27/2022) [address]15-2007 History of Past illness Narrative* Problem Noted Date Resolved Date Plantar fascial 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/08/2007 documented as of this encounter (statuses as of 07/28/2022) [address]15-2007 History of Past illness Narrative* Problem Noted Date Diagnosed Date Resolved Date Plantar fascial 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/08/2007 08/24/2017 documented as of this encounter (statuses as of 08/04/2023) [facility] History of Past illness Narrative* Problem Noted Date Diagnosed Date Resolved Date Plantar fascial 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/08/2007 08/24/2017 documented as of this encounter (statuses as of 08/11/2023) [facility] History of Past illness Narrative* Problem Noted Date Diagnosed Date Resolved Date Plantar fascial 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/08/2007 08/24/2017 documented as of this encounter (statuses as of 09/07/2023) [facility] Diagnosis Encounter for screening mammogram for breast cancer [facility] Diagnosis Adjustment disorder with depressed mood [facility] Diagnosis Adjustment disorder with depressed mood [facility] Diagnosis Adjustment disorder with depressed mood- Primary Essential hypertension, benign documented [facility] Diagnosis Mild cognitive impairment- Primary Mild cognitive impairment, so stated Fatigue, unspecified type Hyperlipidemia with target LDL less than 130 Other and unspecified hyperlipidemia Weight loss Loss of weight Visit for screening mammogram Other screening mammogram Essential hypertension, benign Adjustment disorder with depressed mood Fibromuscular dysplasia of both carotid arteries (HCC) Angiomyolipoma of left kidney [facility] Diagnosis Essential hypertension, benign Adjustment disorder with depressed mood documented in this encounter [facility] for referral (narrative)* Diagnostic Procedure Only (Routine) - Pending Review Specialty Diagnoses / Procedures Referred By Eusebia bennett Referred To Contact [facility] Diagnoses Encounter for screening mammogram for breast cancer Procedures GEOFF SCREENING SCREENING MAMMOGRAPHY BI 2-VIEW BREAST INC Shaina Fernández APRN.[employer] [address] [place] [address] [facility] [address] [place] [id number] Referral ID Status Reason Start Date Expiration Date Visits Requested Visits Authorized [id number] Pending Review Auto-Generat ed Referral 04/22/2022 05/22/2023 1 1 [facility] Diagnostic Procedure Only (Routine) - Pending Review Specialty Diagnoses / Procedures Referred By Eusebia bennett Referred To Contact [facility] Diagnoses Visit for screening mammogram Procedures GEOFF SCREENING SCREENING MAMMOGRAPHY BI 2-VIEW BREAST INC Shaina Fernández APRN.CNP [address] [place] [address] [facility] [address] [place] [address] Referral ID Status Reason Start Date Expiration Date Visits Requested Visits Authorized [id number] Pending Review Auto-Generat ed Referral 3 09/01/2024 1 1 * Consult, Test, Treat (Routine) - Pending Review Specialty Diagnoses / Procedures Referred By Eusebia bennett Referred To Contact Neurology Diagnoses Mild cognitive impairment Procedures CONSULT TO NEUROLOGY OFFICE/OUTPATIENT [facility] 60-74 MINUTES Shaina Torres APRN.[employer] [address] [place] [address] Referral ID Status Reason Start Date Expiration Date Visits Requested Visits Authorized [id number] Pending Review PCP Requested Referral 3 08/02/2024 1 1 [facility] Summary Purpose Family History No Family History Records FoundNo Family History Records FoundNo Family History Records FoundNo Family History Records FoundNo Family History Records Found Advance Directives No Advanced Directives Records FoundNo Advanced Directives Records FoundNo Advanced Directives Records FoundNo Advanced Directives Records FoundNo Advanced Directives Records Found Additional Source Comments INFORMATION SOURCE (unrecogn ized section and content) DATE CREATED AUTHOR AUTHOR'S ORGANIZ ATION 05/13/2020 [facility] DATE CREATED AUTHOR AUTHOR'S ORGANIZ ATION 09/15/2020 [facility] DATE CREATED AUTHOR AUTHOR'S ORGANIZ ATION 09/07/2023 [facility] DATE CREATED AUTHOR AUTHOR'S ORGANIZ ATION 10/01/2023 [facility] Source Comments (unrecognize d section and content) In the event this informatio n is protected by the Federal Confidentiality of Alcohol and Drug Abuse Patient Records regulations: The Federal rules restrict any use of the information to criminally investigate or prosecute any alcohol or drug abuse patient.[facility] the event this information is protected by the Federal Confidentiality of Alcohol and Drug Abuse Patient Records regulations: The Federal rules restrict any use of the information to criminally investigate or prosecute any alcohol or drug abuse patient.[facility] the event this information is protected by the Federal Confidentiality of Alcohol and Drug Abuse Patient Records regulations: The Federal rules restrict any use of the information to criminally investigate or prosecute any alcohol or drug abuse patient.[facility] the event this information is protected by the Federal Confidentiality of Alcohol and Drug Abuse Patient Records regulations: The Federal rules restrict any use of the information to criminally investigate or prosecute any alcohol or drug abuse patient.[facility] the event this information is protected by the Federal Confidentiality of Alcohol and Drug Abuse Patient Records regulations: The Federal rules restrict any use of the information to criminally investigate or prosecute any alcohol or drug abuse patient.[facility] the event this information is protected by the Federal Confidentiality of Alcohol and Drug Abuse Patient Records regulations: The Federal rules restrict any use of the information to criminally investigate or prosecute any alcohol or drug abuse patient.[facility] the event this information is protected by the Federal Confidentiality of Alcohol and Drug Abuse Patient Records regulations: The Federal rules restrict any use of the information to criminally investigate or prosecute any alcohol or drug abuse patient.[facility] Care Teams (unrecognized sec tion and content) Wage Hand Relationship Specialty Start Date End Date Shaina Torres, NANCIE.[employer] [address] [place] [address] PCP - General Family Practice 10/13/21 Wage Hand Relationship Specialty Start Date End Date Shaina Torres APRN.[employer] [address] [place] [address] PCP - General Family Practice 10/13/21 Wage Hand Relationship Specialty Start Date End Date Shaina Torres APRN.[employer] [address] [place] [address] PCP - General Family Medicine 10/13/21 Wage Hand Relationship Specialty Start Date End Date Shaina Torres APRN.[employer] [address] [facility] [place] [id number] PCP - General Family Medicine 10/13/21 Wage Hand Relationship Specialty Start Date End Date Shaina Torres ROUGH CARPENTER.SILVER MINER BLASTING [address] [facility], [place] [id number] PCP - General Family Medicine 10/13/21 Wage Hand Relationship Specialty Start Date End Date Shaina Torres, ROUGH CARPENTER.SIL[employer]ER [employer]ING [address] [place], [place] [id number] PCP - General Family Medicine 10/13/21 Reason for Visit (unrecogniz ed section and content) Reason Comments Recheck Medication follow up Reason Comments Yearly Exam Reason Onset Date Comments Refill Request 07/30/2023 Reason Comments FYI-No Action Needed FOR RECORDS PERTAINING TO PATIENTS WHO ARE OR HAVE BEEN ENROLLED IN A CHEMICAL DEPENDENCY/SUBSTANCEABUSE PROGRAM, SOME INFORMATION MAY BE OMITTED. This clinical summary was aggregated from multiple sources. Caution should be exercised in using it in the provision of clinical care. This summary normalizes information from multiple sources, and as a consequence, information in this document may materially change the coding, format and clinical context of patient data. In addition, data may be omitted in some cases. CLINICAL DECISIONS SHOULD BE BASED ON THE PRIMARY CLINICAL RECORDS. [employer] provides no warranty or guarantee of the accuracy or completeness of information in this document.
== END | disposition home or self-care (01) ==
LOC: OPBI 12:06
PROVIDERS: PCP Nurse Practitioner Family; Referring Provider Obstetrics & Gynecology; Visit Provider Obstetrics & Gynecology
DX: Z12.31 Encounter for screening mammogram for malignant neoplasm of breast (principal)
CPT/HCPCS: 77063; 77067

== ENCOUNTER 2025-03-04 19:10 | Emergency (ER) | payer MEDICARE, OTHER, SELFPAY ==
[2025-03-04 19:12] VITALS: BP 133/62; PULSE 70; RESP 18; TEMP 36.8; O2SAT 99; BMI 30.4
[2025-03-04 19:50] LABS: Absolute Lymphocyte Count 2.59 X10^3/uL (0.83-4.51); Basophil# 0.05 X10^3/uL; Basophil% 0.5 % (0-1); Eosinophil# 0.16 X10^3/uL; Eosinophils% 1.7 % (0-5); Hematocrit 33.4 % (37-47); Hemoglobin 10.9 g/dL (12.0-15.0); Lymphocyte # 2.59 X10^3/ul (0.83-4.51); Lymphocyte % 27.3 % (19-41); Mean Corp Hgb Conc 32.6 g/dL (32-36); Mean Corpuscular Hgb 29.5 pg (27.0-32.0); Mean Corpuscular Volume 90.5 fL (81-99); Monocyte# 0.67 X10^3/uL; Monocyte% 7.1 % (0-10); NRBC Flagged by Analyzer 0 % (0-5); Neutrophil % 63.1 % (47-70); Platelet Count 437 K/mm3 (150-450); RBC Distribution Width CV 12.8 % (11.6-14.6); RBC Distribution Width SD 42.4 fl (35.1-43.9); Red Blood Count 3.69 M/mm3 (4.2-5.4); White Blood Count 9.5 K/mm3 (4.4-11.0)
[2025-03-04 20:06] LABS: Anion Gap 12 (5-15); BUN 26 mg/dL (4-19); BUN/Creat Ratio 32.2 RATIO (10-20); Carbon Dioxide 25.4 mmol/L (21.0-32.0); Chloride 102 mmol/L (98-108); Creatinine, Serum 0.81 mg/dL (0.70-1.20); EST Glomerular Filtration Rate 81 (>60); Estimated Creatinine Clearance 78.88 ml/min (50-250); Glucose 111 mg/dL (70-99); Potassium 4.5 mmol/L (3.3-5.1); Sodium Level 139 mmol/L (133-145)
[2025-03-04] MEDS: Enoxaparin 100 MG/ML Syringe 90 MG SC (20:26)
[2025-03-04 20:28] VITALS: BP 130/64; PULSE 70; RESP 18; TEMP 36.7; O2SAT 100
--- NOTE | 2025-03-04 23:39 | EX.ED.DYSGE1 ---
HPI History of Present Illness Chief Complaint: Lower Extremity Injury Informant: patient Onset/Context/Timing Onset: Today and Yesterday Location: Bilateral lower extremities Associated Symptoms Associated Symptoms: Patient has noticed some lumps in her left lower leg and pain in her right Narrative Narrative: Patient had left hip surgery about 2 weeks ago. She has been recovering well. She is now having some pain in her right calf and she noted some lumps in her left calf. She was concerned for DVT. She does not have a history of DVT but her son did. She had no other risk factors. She is not on anticoagulation. Prior similar symptoms: No Recent Illness/Hospitalization: No [facility] Medical History Vitamin B deficiency Hypertension Depression Anxiety Home Medications ?Medication ?Instructions ?Recorded ?Last Taken ?Type amlodipine 5 mg tablet 5 mg PO DAILY 09/05/14 07/09/20 History bupropion HCl 150 mg 24 hr tablet, 150 mg PO DAILY 09/05/14 Unknown History extended release calcium carbonate (Caltrate 600) 600 mg PO DAILY@0800 09/05/14 Unknown History cholecalciferol (vitamin D3) 25 2,000 unit PO DAILY 09/05/14 Unknown History mcg (1,000 unit) tablet (Vitamin D3) aspirin 81 mg tablet,delayed 81 mg PO DAILY 01/02/20 01/01/20 History release fluoxetine 20 mg capsule 20 mg PO DAILY 01/02/20 Unknown History hydrochlorothiazide 12.5 mg capsule 12.5 mg PO DAILY 01/02/20 Unknown History omega-3 fatty acids-fish oil 340 1 ea PO DAILY 01/02/20 01/02/20 History mg-1,000 mg capsule turmeric root extract 500 mg 1,000 mg PO DAILY 01/02/20 Unknown History capsule vitamin B complex-folic acid 0.4 1 ea PO DAILY 01/02/20 Unknown History mg tablet Allergy/AdvReac Type Severity Reaction Status Date / Time No Known Allergies Allergy Verified 03/04/25 19:13 Family History Aunt Breast cancer Social History Smoking Status: Never smoker alcohol intake: current details: social substance use type: does not use caffeine: Yes what type of physical activity do you participate in: none seatbelt use: always do you feel safe at home: Yes additional social history: Gabriela Tesfaye Patient works PT at the [employer] ROS ROS ED Constitutional Constitutional ED: Denies chills or fever(s) Cardiovascular Cardiovascular: Denies chest pain or palpitations Respiratory/Chest Respiratory/Chest: Denies cough or dyspnea Gastrointestinal Gastrointestinal: Denies abdominal pain Musculoskeletal Musculoskeletal: Reports myalgias; Denies arthralgias Integumentary Denies rash Neurologic Neurologic: Denies paresthesias or weakness Hematologic/Lymphatic Hematologic/Lymphatic: Denies easy bleeding or easy bruising EXAM Physical Exam Const Vital Signs: 03/04/25 19:12 03/04/25 20:28 Temperature 98.2 F 98.1 F Temperature Source Oral Pulse Rate 70 70 Respiratory Rate 18 18 Blood Pressure 133/62 H 130/64 H Blood Pressure Mean 85 86 Pulse Ox 99 100 Oxygen Delivery Method Room Air Positive well nourished and well developed General Appearance ED: well developed HEENT Reports moist mucous membranes Eyes EOMs intact bilaterally Resp normal respiratory effort Cardio regular rate Extremity Negative for normal to inspection Extremity Narrative: Bilaterally General Extremety ED: Yes edema and tenderness General Extremity: edema Neuro oriented x3 and no sensory deficits noted Sensorium / Orientation: alert Motor Exam: strength 5/5 throughout Psych mental status grossly normal Skin no rashes or lesions noted, no wounds and skin turgor normal MDM MDM MDM Narrative Medical decision making narrative: Patient is concerned for DVT bilaterally. She did have a recent surgery and a family history of DVT. No symptoms to suggest PE. Suspect she is low risk ultimately. Ultrasound is not available at this time of the day. I checked her platelets and they are normal. She is slightly anemic likely from the recent surgery. She has good kidney function. Will treat her with 1 dose of Lovenox therapy. I ordered bilateral duplex ultrasounds of her lower legs. She will call back in the morning to arrange outpatient imaging. Return for any new or worsening issues. Discharge home. Impression #1 bilateral lower extremity pain Impression #2 anemia Lab Data Attestation: I reviewed the patient's lab results. Labs: Laboratory Results - last 24 hr 03/04/25 19:43 WBC 9.5 RBC 3.69 L Hgb 10.9 L Hct 33.4 L MCV 90.5 MCH 29.5 MCHC 32.6 RDW Std Deviation 42.4 RDW Coeff of Summer 12.8 Plt Count 437 MPV 11.0 Immature Gran % (Auto) 0.300 Neut % (Auto) 63.1 Lymph % (Auto) 27.3 Placer % (Auto) 7.1 Eos % (Auto) 1.7 Baso % (Auto) 0.5 Absolute Neuts (auto) 6.0 Absolute Lymphs (auto) 2.59 Nucleated RBC % 0 Sodium 139 Potassium 4.5 Chloride 102 Carbon Dioxide 25.4 Anion Gap 12 BUN 26 H Creatinine 0.81 Estim Creat Clear Calc 78.88 Est GFR (MDRD) Non-Af 81 BUN/Creatinine Ratio 32.2 H Glucose 111 H Calcium 10.0 Discharge Plan Triage Chief Complaint: Lower Extremity Injury ED Provider: Raphael Mendoza Dx/Rx/DC Orders Clinical Impression: Bilateral leg pain, Anemia Instructions: Understanding Deep Vein Thrombosis Prescriptions: No Action amlodipine 5 MG tablet 5 mg PO DAILY calcium carbonate [Caltrate 600] 600 MG tablet 600 mg PO DAILY@0800 bupropion HCl 150 MG tablet extended release 24 hr 150 mg PO DAILY cholecalciferol (vitamin D3) [Vitamin D3] 1,000 UNIT tablet 2,000 unit PO DAILY aspirin 81 MG tablet,delayed release (DR/EC) 81 mg PO DAILY hydrochlorothiazide 12.5 MG capsule 12.5 mg PO DAILY fluoxetine 20 MG capsule 20 mg PO DAILY vitamin B complex-folic acid 0.4 MG tablet 1 ea PO DAILY omega-3 fatty acids-fish oil 1 EACH capsule 1 ea PO DAILY turmeric root extract 500 MG capsule 1,000 mg PO DAILY Primary Care Provider: Shaina Torres NP Referrals: Shaina Torres NP, NURSE ADMINISTRATOR-C [Primary Care Provider] - Print Language: Portuguese Disposition Disposition: Home, Self Care Discharge Date/Time: 03/04/25 20:49
== END 2025-03-04 20:49 | disposition home or self-care (01) ==
PROVIDERS: Emergency Provider Emergency Medicine; PCP Registered Nurse; Visit Provider Emergency Medicine
DX: M79.604 Pain in right leg (principal); D64.9 Anemia, unspecified; M79.605 Pain in left leg; I10 Essential (primary) hypertension
CPT/HCPCS: 80048; 85025; 96372; 99282; A4216

== ENCOUNTER → 2025-03-05 | Outpatient (CLI) | payer MEDICARE, OTHER, SELFPAY ==
--- NOTE | 2025-03-05 11:13 | VDLE_ITS ---
Reason For Study Reason For Study: Pain RIGHT LEFT GSV is normal. GSV is normal. CFV is compressible, spontaneous, phasic, competent CFV is compressible, spontaneous, phasic, competent, and demonstrates normal augmentation. and demonstrates normal augmentation. FV is compressible, spontaneous, phasic, competent FV is compressible, spontaneous, phasic, competent and demonstrates normal augmentation. and demonstrates normal augmentation. POP V is compressible, spontaneous, phasic, competent POP V is compressible, spontaneous, phasic, competent and demonstrates normal augmentation. and demonstrates normal augmentation. T/P Trunk is compressible. T/P Trunk is compressible. PTV is compressible. PTV is compressible. RT PerV is compressible. LT PerV is compressible. Procedure This is a venous duplex using B-mode, color flow and spectral Doppler. Exam performed in department. A preliminary report was called and/or faxed to Raphael Mendoza MD. VL/Venous Duplex US - Daniel Extrem Interpretation Summary Deep veins of the bilateral lower extremities are patent and compressible segme ntally. There is no evidence of bilateral lower extremity deep vein thrombosis. The bilateral great saphenous veins appea r patent and compressible segmentally. Ordering Physician: Raphael Mendoza Referring Physician: Shaina Torres NP Performed By: Essie Warren RVT
== END | disposition home or self-care (01) ==
LOC: CVS 11:11
PROVIDERS: PCP Registered Nurse; Referring Provider Emergency Medicine; Visit Provider Emergency Medicine
DX: M79.661 Pain in right lower leg (principal); M79.662 Pain in left lower leg
CPT/HCPCS: 93970